=== PATIENT | male | born 2005 | race Caucasian/White ===

== ENCOUNTER 2023-02-13 06:18 | Emergency (ER) | payer OTHER ==
[2023-02-13 06:43] VITALS: BP 144/72; PULSE 91
== END 2023-02-13 08:03 | disposition home or self-care (01) ==
LOC: VM.ED 06:18
DX: S92.102A Unspecified fracture of left talus, initial encounter for closed fracture (principal); W18.40XA Slipping, tripping and stumbling without falling, unspecified, initial encounter
CPT/HCPCS: 73610-LT; 73620-LT; 99283